=== PATIENT | male | born 1965 | race Caucasian/White ===

== ENCOUNTER 2024-07-29 09:59 | Outpatient (CLI) | payer OTHER, SELFPAY ==
[2024-07-29 11:15] LABS: Influenza A QL RT-PCR Negative (Negative); Influenza B QL RT-PCR Negative (Negative); RSV RNA, RT-PCR Negative (Negative); SARS-CoV-2 RNA PCR Negative (Negative)
== END 2024-07-29 10:00 | disposition home or self-care (01) ==
LOC: ANHLAB 10:00
PROVIDERS: PCP Family Medicine; Visit Provider Family Medicine
DX: R68.89 Other general symptoms and signs (principal); Z20.822 Contact with and (suspected) exposure to COVID-19
CPT/HCPCS: 87637

== ENCOUNTER 2024-08-02 15:03 | Outpatient (CLI) | payer OTHER, SELFPAY ==
--- NOTE | ~2024-08-02 | XR_ITS ---
EXAMINATION: XR chest 2V DATE: 08/02/2024 15:21 INDICATION: Persistent cough and congestion. TECHNIQUE: Frontal and lateral views of the chest were obtained. COMPARISON: None. FINDINGS: There is mild scarring at the lung apices. No pleural effusion or pneumothorax. The heart s ize is normal. Surgical clips in the right upper quadrant are likely from cholecystectomy. IMPRESSION: 1. Mild scarring at the lung apices. Reviewed, dictated and finalized at location A. DEVELOPER
== END 2024-08-02 15:04 | disposition home or self-care (01) ==
LOC: ANHIMG 15:05
PROVIDERS: PCP Family Medicine; Visit Provider Family Medicine
DX: J20.9 Acute bronchitis, unspecified (principal); R91.8 Other nonspecific abnormal finding of lung field
CPT/HCPCS: 71046

== ENCOUNTER 2024-10-08 01:55 | Day surgery (SDC) | payer OTHER, SELFPAY ==
[2024-09-27 09:38] VITALS: BMI 29.0
[2024-10-08 07:21] VITALS: BP 151/88; PULSE 94; RESP 20; TEMP 35.9; O2SAT 100
[2024-10-08] MEDS: LACTATED RINGERS 1,000 ML 150 ML IV CONT (07:31)
--- NOTE | 2024-10-08 07:59 | P.PNAN_ITS ---
Anes - Initial Pre Proc Eval Procedure: Operation Date: 10/08/24 08:30 Proposed Procedures p Screening Colonoscopy - Jhonathan Montanez MD Date/Time: 10/08/24 07:59 Surgeon: Jhonathan Montanez MD Pre Op Diagnosis: screening malignant neoplasm colon Patient Data Age: 59 Gender: M Height: 1.85 m Weight: 97 kg Last Vital Signs Temp 96.6 F L 10/08/24 07:21 Pulse 94 10/08/24 07:21 Resp 20 10/08/24 07:21 BP 151/88 H 10/08/24 07:21 Pulse Ox 100 10/08/24 07:21 O2 Del Method Room Air 10/08/24 07:21 Allergies Allergy/AdvReac Type Severity Reaction Status Date / Time No Known Allergies Allergy Verified 10/08/24 07:18 Home Medications ?Medication ?Instructions ?Recorded ?Confirmed ?Type metoprolol succinate 25 mg 25 mg PO DAILY 07/08/22 10/08/24 History tablet,extended release 24 hr sacubitril 49 mg-valsartan 51 mg 1 tablet PO BID 07/08/22 10/08/24 History tablet (Entresto) sildenafil (pulm.hypertension) 20 See Rx Instructions PO ONCE #90 07/20/24 10/08/24 Rx mg tablet tabs cefdinir 300 mg capsule 300 mg PO Q12H #20 caps 07/29/24 10/08/24 Rx Patient hx anesthesia problems: none Family hx anesthesia problems: none Results Review: All pre-operative results and documents have been reviewed as part of the pre- operative evaluation. [facility], [facility] Past Medical History Medical History Acute bronchitis Chest x-ray 08/03/2024 with mild scarring at the apices with no evidence of pneumonia. Flu-like symptoms Microscopic hematuria trace amount of blood on urinalysis on 08/08/2023. Vitamin B12 deficiency (09/12/22) level low at 397 with goal greater than 400 with folic acid 6.0 and hemoglobin 14.8 on 09/12/2022. Level low at 362 on 08/08/2023. Level slightly low at 359 with hemoglobin 13.8 on 09/14/2024. Overweight (BMI 25.0-29.9) Encounter for wellness examination in adult Male erectile dysfunction, unspecified Total testosterone 697 with free testosterone 104.7 on 07/09/2021. BMI 27.0-27.9,adult Seasonal allergic rhinitis Acute non-recurrent maxillary sinusitis Essential hypertension Colon cancer screening normal colonoscopy at age 49. Encounter for prostate cancer screening PSA 0.35 on 07/09/2021. PSA 0.33 on 09/12/2022. PSA 0.41 on 08/08/2023. PSA 0.37 on 09/14/2024. Mixed hyperlipidemia Total cholesterol 186, triglycerides 97, HDL 55 and LDL 111 on 07/09/2021. Total cholesterol 207, triglycerides 97, HDL 54 and LDL 133 on 09/12/2022. Cholesterol 189, triglycerides 71, HDL 52, LDL 120 with ratio 3.6 on 09/14/2024. Family History Family History Father Cerebrovascular accident Family history of malignant neoplasm Family history of diabetes mellitus in first degree relative Acute myocardial infarction Social History Social History Smoking status: Former smoker Tobacco type: cigarettes Alcohol intake: never Substance use: never Substance use type: does not use Lack of Transportation: No Lack of Food: Never True Current Housing: I Have Housing Concerned About Future Housing: No Difficulty Paying Gas/Electric Bills: No Difficulty Paying for Meds: No Currently Unemployed: No Education: Trade/Vocational Certificate Difficulty w/ Childcare or Family Care: No Living arrangements: with family Spiritual care concerns: No Anes - Eval Final PreProcedure Day of Procedure 10/08/24 07:59 Patient weight: normal Heart: regular rate and rhythm Lungs: normal air movement Airway: Mallampati scale class II Neurological: alert and oriented Last oral intake: >/= 8 hours ASA classification: III Emergent: no Anesthetic plan: proceed Anesthesia type and monitoring: general GIVS and standard monitoring Results Review: All pre-operative results and documents have been reviewed as part of the pre- operative evaluation. HTN, hx of V tach, been stable. Recent cardiac MRI w LVEF 55%. Informed Consent: The patient's anesthetic plan and its attendant risks and benefits were discussed with the patient/family/POA. Questions were solicited and answers provided to the satisfaction of the patient/family/POA.
--- NOTE | 2024-10-08 08:32 | P.HP_ITS ---
H&P: HPI History of Present Illness Date/Time: 10/08/24 08:32 Chief Complaint: Screening colonoscopy Narrative: This is the patient's second colonoscopy after 10 years. There are no GI symptoms and there is no family history of colorectal cancer. Review of Systems Review of Systems: All systems reviewed & are unremarkable except as noted in HPI and below PMFSH Past Medical History Medical History Acute bronchitis Chest x-ray 08/03/2024 with mild scarring at the apices with no evidence of pneumonia. Flu-like symptoms Microscopic hematuria trace amount of blood on urinalysis on 08/08/2023. Vitamin B12 deficiency (09/12/22) level low at 397 with goal greater than 400 with folic acid 6.0 and hemoglobin 14.8 on 09/12/2022. Level low at 362 on 08/08/2023. Level slight ly low at 359 with hemoglobin 13.8 on 09/14/2024. Overweight (BMI 25.0-29.9) Encounter for wellness examination in adult Male erectile dysfunction, unspecified Total testosterone 697 with free testosterone 104.7 on 07/09/2021. BMI 27.0-27.9,adult Seasonal allergic rhinitis Acute non-recurrent maxillary sinusitis Essential hypertension Colon cancer screening normal colonoscopy at age 49. Encounter for prostate cancer screening PSA 0.35 on 07/09/2021. PSA 0.33 on 09/12/2022. PSA 0.41 on 08/08/2023. PSA 0.37 on 09/14/2024. Mixed hyperlipidemia Total cholesterol 186, triglycerides 97, HDL 55 and LDL 111 on 07/09/2021. Total cholesterol 207, triglycerides 97, HDL 54 and LDL 133 on 09/12/2022. Cholesterol 189, triglycerides 71, HDL 52, LDL 120 with ratio 3.6 on 09/14/2024. Family History Family History Father Cerebrovascular accident Family history of malignant neoplasm Family history of diabetes mellitus in first degree relative Acute myocardial infarction Social History Social History Smoking status: Former smoker Tobacco type: cigarettes Alcohol intake: never Substance use: never Substance use type: does not use Lack of Transportation: No Lack of Food: Never True Current Housing: I Have Housing Concerned About Future Housing: No Difficulty Paying Gas/Electric Bills: No Difficulty Paying for Meds: No Currently Unemployed: No Education: Trade/Vocational Certificate Difficulty w/ Childcare or Family Care: No Living arrangements: with family Spiritual care concerns: No Meds Home Medications and Allergies Home Medications ?Medication ?Instructions ?Recorded ?Confirmed ?Type metoprolol succinate 25 mg 25 mg PO DAILY 07/08/22 10/08/24 History tablet,extended release 24 hr sacubitril 49 mg-valsartan 51 mg 1 tablet PO BID 07/08/22 10/08/24 History tablet (Entresto) sildenafil (pulm.hypertension) 20 See Rx Instructions PO ONCE #90 07/20/24 10/08/24 Rx mg tablet tabs cefdinir 300 mg capsule 300 mg PO Q12H #20 caps 07/29/24 10/08/24 Rx Allergies Allergy/AdvReac Type Severity Reaction Status Date / Time No Known Allergies Allergy Verified 10/08/24 07:18 Vital Signs Vital Signs - 24 hr 10/08/24 07:21 Temperature 96.6 F L Pulse Rate 94 Respiratory Rate 20 Blood Pressure 151/88 H Pulse Oximetry 100 Oxygen Delivery Room Air Exam Const: General: cooperative and healthy appearing Resp: Effort & Inspection: normal respiratory effort and able to speak in c omplete sentences Auscultation: clear to auscultation bilaterally Cardio: Rate: regular rate Rhythm: regular rhythm GI: Inspection: normal to inspection GI Palp: No No hepatosplenomegaly present Auscultation: normal bowel sounds Rectal Exam: deferred Skin: General skin exam: normal color Psych: Appearance: grossly normal Mental Status: mental status grossly normal Assessment and Plan Assessment and plan (1) Colon cancer screening: Code(s): Z12.11 - Encounter for screening for malignant neoplasm of colon Status: Acute Assessment and Plan: The patient is deemed a good candidate for the procedure. Consent signed. Will proceed.
[2024-10-08] MEDS: SIMETHICONE ORAL SUSPENSION 20 MG/0.3 ML 30 ML BOTTLE 0.6 ML IRRIGATION (08:52)
[2024-10-08 09:03] VITALS: BP 102/70; PULSE 71; RESP 14; O2SAT 96
[2024-10-08 09:13] VITALS: BP 106/72; PULSE 72; RESP 20; O2SAT 96
[2024-10-08 09:23] VITALS: BP 112/76; PULSE 69; RESP 18; O2SAT 98
== END 2024-10-08 09:30 | disposition home or self-care (01) ==
PROVIDERS: PCP Family Medicine; Visit Provider Internal Medicine Gastroenterology
PROC: 0DJD8ZZ Inspection of Lower Intestinal Tract, Via Natural or Artificial Opening Endoscopic (ICD-10-PCS; CPT 45378; principal; 2024-10-08 08:30)
DX: Z12.11 Encounter for screening for malignant neoplasm of colon (principal); E78.2 Mixed hyperlipidemia; I10 Essential (primary) hypertension; E53.8 Deficiency of other specified B group vitamins; N52.9 Male erectile dysfunction, unspecified; Z87.891 Personal history of nicotine dependence; Z80.9 Family history of malignant neoplasm, unspecified; Z82.49 Family history of ischemic heart disease and other diseases of the circulatory system
CPT/HCPCS: 45378; J2003; J2704; J7120

== ENCOUNTER 2024-10-25 14:49 | Outpatient (CLI) | payer OTHER, SELFPAY ==
--- NOTE | ~2024-10-25 | XR_ITS ---
HISTORY: M25.511 - Pain in right shoulder COMPARISON: None TECHNIQUE: 3 views of the right shoulder were performed FINDINGS: No acute fracture. The glenohumeral and acromioclavicular joint space is maintained The visualized portion of the adjacent right lung is clear. The humeral head is well seated within the glenoid fossa. IMPRESSION: No acute fracture or anterior dislocation. Reviewed, dictated and finalized at location A. CTOR STAGE
== END 2024-10-25 14:50 | disposition home or self-care (01) ==
PROVIDERS: PCP Family Medicine; Visit Provider Family Medicine
DX: M25.511 Pain in right shoulder (principal); G89.29 Other chronic pain
CPT/HCPCS: 73030